=== PATIENT | male | born 1950 | race Caucasian/White ===

== ENCOUNTER 2021-01-24 06:55 | Day surgery (SDC) | payer MEDICARE ==
[2021-01-23 09:35] LABS: ANION GAP 5 mmol/L (5-15); CALCIUM 9.5 mg/dL (8.5-10.1); CHLORIDE 107 mmol/L (98-107)
[2021-01-23 09:36] LABS: CREATININE 0.79 mg/dL (0.7-1.3)
[~2021-01-24] VITALS: Ht 185.4 cm; Wt 81.6 kg
[~2021-01-24 06:55] MED LIST: ALBU8.5H5 INH; ALLO300T PO; ASCO100018 PO; ASPI1TAB31 PO; AZEL137S4 NAS; BUDE10.2 PO; BUPIVACAINE LIPOSOME/PF 10ML INFIL ONE; CHOL200052 PO; CLINDAMYCIN 150 MG/ML, 6ML ONE; DEXL60CA2 PO; EVOL140S2 INJ; FLUT1BLS INH; FLUT9.9S NAS; GABA-826 PO; GABA300C10 PO; LORA10CA PO; LYSI500T25 PO; MAGN400T36 PO; MONT10TA17 PO; MULT-658 PO; NITR0.4T28 SL; OMEP-110 PO; RABE20TA29 PO; RANI150T4 PO; ROSU10TA2 PO; SILD20TA2 PO; SUMA25TA3 PO; TAMS-11 PO; TOPI50TA8 PO
[2021-01-24] MEDS ORDERED: VANCOMYCIN PER PHARMACY MC STA (07:14)
[2021-01-24 07:24] VITALS: BP 135/80
[2021-01-24] MEDS ORDERED: CHLORHEXIDINE 15 ML UDC PO ONE (07:30)
[2021-01-24] MEDS ORDERED: LACTATED RINGERS 1,000 ML IV SCH (07:30)
[2021-01-24] MEDS ORDERED: VANCOMYCIN 1,600 MG in SODIUM CHLORIDE 0.9% 250 ML IV ONE (07:30)
[2021-01-24] MEDS ORDERED: HYDROmorphone 1 MG/ML, 1ML INJ IVPush PRN (08:00)
[2021-01-24] MEDS ORDERED: PROMETHAZINE 25 MG/ML, 1ML IVPush PRN (08:00)
[2021-01-24] MEDS ORDERED: MEPERIDINE/PF 25MG/0.5ML IVPush PRN (08:00)
[2021-01-24] MEDS ORDERED: ACETAMINOPHEN 325 MG TABLET PO PRN (08:00)
[2021-01-24] MEDS ORDERED: MIDAZOLAM 1 MG/ML, 2ML IV PRN (08:00)
[2021-01-24] MEDS ORDERED: LABETALOL 5MG/ML, 20ML IV PRN (08:00)
[2021-01-24] MEDS ORDERED: MIDAZOLAM 1 MG/ML, 2ML ONE (08:25)
[2021-01-24] MEDS ORDERED: FENTANYL PF 100 MCG/2ML ONE ×2 (08:25→11:24)
[2021-01-24] MEDS ORDERED: GLYCOPYRROLATE 0.2MG/1ML, 5ML ONE (08:40)
[2021-01-24] MEDS ORDERED: DEXAMETHASONE 4 MG/ML, 1ML ONE (08:40)
[2021-01-24] MEDS ORDERED: ONDANSETRON 2MG/ML, 2ML ONE (08:40)
[2021-01-24] MEDS ORDERED: ROCURONIUM 10MG/ML,5ML ONE (08:40)
[2021-01-24] MEDS ORDERED: CEFAZOLIN 1,000 MG ONE (08:40)
[2021-01-24] MEDS ORDERED: PROPOFOL 10 MG/ML, 20ML ONE (08:40)
[2021-01-24] MEDS ORDERED: BUPIVACAINE/PF 0.25% ONE (08:40)
[2021-01-24] MEDS ORDERED: NEOSTIGMINE 1 MG/ML, 10ML ONE (08:40)
[2021-01-24] MEDS ORDERED: LIDOCAINE-MPF 2% ,5ML ONE (08:40)
[2021-01-24] MEDS ORDERED: NITROGLYCERIN SINGLE TAB 0.4 MG SL PRN (09:00)
[2021-01-24] MEDS ORDERED: TEMPLATE NON-FORMULARY MED. (Azelastine Hcl Nasal 1 SPRAY) NAS SCH (09:00)
[2021-01-24] MEDS ORDERED: ASA/APAP/ CAFFEINE TABLET PO SCH ×2 (09:00)
[2021-01-24] MEDS ORDERED: TEMPLATE NON-FORMULARY MED. (Cholecalciferol (Vitamin D3)** (Vitamin D**) 2,000 UNIT) PO SCH (09:00)
[2021-01-24] MEDS ORDERED: MULTIVITAMIN 1 TABLET PO SCH (09:00)
[2021-01-24] MEDS ORDERED: MAGNESIUM OXIDE 400 MG PO SCH (09:00)
[2021-01-24] MEDS ORDERED: TAMSULOSIN 0.4 MG CAP.ER.24H PO SCH (09:00)
[2021-01-24] MEDS ORDERED: OMEPRAZOLE 20 MG CAPSULE.DR PO SCH (09:00)
[2021-01-24] MEDS ORDERED: ALBUTEROL HFA 90 MCG/SPRAY INH PRN (09:00)
[2021-01-24] MEDS ORDERED: LYSINE HCL 1000 MG PO SCH (09:00)
[2021-01-24] MEDS ORDERED: GABAPENTIN 100 MG CAPSULE PO SCH (09:00)
[2021-01-24] MEDS ORDERED: SILDENAFIL 20 MG TABLET PO SCH (09:00)
[2021-01-24] MEDS ORDERED: SUMATRIPTAN 25 MG TABLET PO PRN (09:00)
[2021-01-24] MEDS ORDERED: MONTELUKAST 10 MG TABLET PO SCH (09:00)
[2021-01-24] MEDS ORDERED: FLUTICASONE/VILANTEROL 200-25MCG/INH INH SCH (09:00)
[2021-01-24] MEDS ORDERED: EPHEDRINE 50 MG/ML, 1ML ONE (09:20)
[2021-01-24] MEDS: FENTANYL PF 100 MCG/2ML IV PRN ×2 (11:26→11:33)
[2021-01-24] MEDS ORDERED: OXYcodone 5 MG/5 ML ORAL.SOL UDC ONE ×2 (11:43→12:44)
[2021-01-24] MEDS: OXYcodone 5 MG/5 ML ORAL.SOL UDC PO PRN ×2 (11:45→12:49)
[2021-01-24] MEDS ORDERED: METOCLOPRAMIDE 5 MG/ML, 2ML ONE (14:38)
[2021-01-24] MEDS ORDERED: METOCLOPRAMIDE 5 MG/ML, 2ML IVPush ONE (15:00)
[2021-01-24] MEDS ORDERED: ALLOPURINOL 300 MG TABLET PO SCH (21:00)
== END 2021-01-24 15:15 | disposition home or self-care (01) ==
LOC: OUT 06:55 → EDSTATUS 16:30
PROVIDERS: ATTEND Orthopaedic Surgery
DX: M19.012 Primary osteoarthritis, left shoulder (principal); M25.712 Osteophyte, left shoulder; M65.812 Other synovitis and tenosynovitis, left shoulder; J44.9 Chronic obstructive pulmonary disease, unspecified; M10.9 Gout, unspecified; G43.909 Migraine, unspecified, not intractable, without status migrainosus; N40.0 Benign prostatic hyperplasia without lower urinary tract symptoms; Z79.899 Other long term (current) drug therapy; Z88.8 Allergy status to other drugs, medicaments and biological substances
CPT/HCPCS: 23472; 36415; 64415; 80048; 87081; 93005; C1713; C1776; J0690; J1100; J2250; J2405; J2704; J2710; J2765; J3010; J3370; J7050; J7120